=== PATIENT | female | born 1985 | race Two or more races ===

== ENCOUNTER 2023-06-21 23:17 | Emergency (ER) | payer MEDICAID, OTHER ==
[~2023-06-21] VITALS: Ht 157.5 cm; Wt 61.3 kg
[2023-06-22] MEDS ORDERED: ONDANSETRON HCL 4 MG/2 ML VIAL IM ONE (01:00)
[2023-06-22] MEDS ORDERED: KETOROLAC TROMETH 30 MG/ML 1ML VIAL IM ONE (01:00)
[2023-06-22] MEDS ORDERED: PROM1SOL4 PO (02:05)
[2023-06-22] MEDS ORDERED: IBUP-1455 PO (02:05)
[2023-06-22] MEDS ORDERED: ZOFR4T PO (02:05)
[2023-06-22 02:54] LABS: COVID19 ANTIGEN SOFIA FIA NEGATIVE (NEGATIVE); Rapid Influenza A Negative (Negative); Rapid Influenza B Negative (Negative)
[2023-06-22 03:49] LABS: Basophils # (auto) 0 10 ^3/uL (0-0.2); Basophils % (auto) 0.5 % (0.0-2.0); Eosinophils # (auto) 0 10 ^3/uL (0-0.8); Eosinophils % (auto) 0.6 % (0.0-7.0); Hematocrit 39.5 % (36.0-46.0); Hemoglobin 13.2 g/dL (12.2-16.2); Lymphocytes # (auto) 1.1 10 ^3/uL (0.4-5.4); Lymphocytes % (auto) 32.4 % (10.0-50.0); Mean Corpuscular Hemoglobin 28.8 pg (28.0-32.0); Mean Corpuscular Hgb Conc. 33.4 g/dL (32.0-36.0); Mean Corpuscular Volume 86.5 fL (80.0-100.0); Monocytes # (auto) 0.5 10 ^3/uL (0-1.3); Monocytes % (auto) 14.7 % (0.0-12.0); Neutrophils # (auto) 1.7 10 ^3/uL (1.6-8.6); Neutrophils % (auto) 51.8 % (37.0-80.0); Nucleated Red Blood Cells % 0.2 %; Red Blood Cells 4.57 10^6/uL (4.0-5.20); Red Cell Distribution Width 13.9 % (11.8-14.3); White Blood Cell 3.3 10^3/uL (4.4-10.8)
[2023-06-22 03:58] LABS: Albumin 4.4 g/dL (3.2-4.8); Alkaline Phosphatase 56 U/L (46-116); Anion Gap 5 (5-15); Aspartate Aminotransferase 11 U/L (13-40); BUN/Creatinine Ratio 5.6 (10.0-20.0); Bilirubin, Total 0.4 mg/dL (0.2-1.0); Blood Urea Nitrogen 5 mg/dL (9-23); Calcium 8.9 mg/dL (8.7-10.4); Carbon Dioxide 23 mmol/L (20-30); Chloride 107 mmol/L (98-107); Glucose 97 mg/dL (74-106); Potassium 3.9 mmol/L (3.5-5.1); Sodium 135 mmol/L (136-145)
[2023-06-22 03:59] LABS: Total Protein 6.9 g/dL (5.7-8.2)
[2023-06-22 04:01] LABS: Alanine Aminotransferase < 9 U/L (7-40)
[2023-06-22 04:20] VITALS: BP 99/67; PULSE 60; RESP 18; TEMP 99; O2SAT 95
== END 2023-06-22 04:22 | disposition home or self-care (01) ==
LOC: ER 23:17
DX: B34.9 Viral infection, unspecified (principal); Z20.822 Contact with and (suspected) exposure to COVID-19
CPT/HCPCS: 36415; 80053; 85025; 87426; 87804; 96372; 99284; J1885; J2405

== ENCOUNTER 2023-12-02 03:58 | Emergency (ER) | payer MEDICAID ==
[~2023-12-02] VITALS: Ht 157.5 cm; Wt 61.3 kg
[~2023-12-02 03:58] MED LIST: IBUP-1455 PO; PROM1SOL4 PO; ZOFR4T PO
[2023-12-02 04:10] VITALS: O2SAT 98
[2023-12-02 04:25] LABS: Urine Bacteria None Seen /hpf (None Seen)
[2023-12-02 04:37] LABS: Urine Blood Negative /uL (Negative); Urine Clarity Clear (Clear); Urine Color Light-Yellow (Yellow); Urine Mucus FEW (None Seen); Urine Protein, UAD Negative (Negative); Urine Specific Gravity 1.019 (1.001-1.035); Urine Urobilinogen 2 mg/dL (Negative); Urine WBC 2 /hpf (0 - 5)
[2023-12-02 04:39] LABS: Basophils # (auto) 0.1 10 ^3/uL (0-0.2); Basophils % (auto) 0.9 % (0.0-2.0); Eosinophils # (auto) 0.1 10 ^3/uL (0-0.8); Eosinophils % (auto) 1.3 % (0.0-7.0); Hematocrit 35.4 % (36.0-46.0); Hemoglobin 11.8 g/dL (12.2-16.2); Lymphocytes # (auto) 3.7 10 ^3/uL (0.4-5.4); Lymphocytes % (auto) 51.7 % (10.0-50.0); Mean Corpuscular Hemoglobin 28.5 pg (28.0-32.0); Mean Corpuscular Hgb Conc. 33.2 g/dL (32.0-36.0); Mean Corpuscular Volume 85.8 fL (80.0-100.0); Monocytes # (auto) 0.4 10 ^3/uL (0-1.3); Neutrophils # (auto) 2.9 10 ^3/uL (1.6-8.6); Neutrophils % (auto) 40.1 % (37.0-80.0); Nucleated Red Blood Cells % 0.1 %; Red Blood Cells 4.12 10^6/uL (4.0-5.20); Red Cell Distribution Width 13.6 % (11.8-14.3); White Blood Cell 7.3 10^3/uL (4.4-10.8)
[2023-12-02 04:52] LABS: Chloride 109 mmol/L (98-107); Potassium 3.7 mmol/L (3.5-5.1); Sodium 137 mmol/L (136-145)
[2023-12-02 04:53] LABS: Anion Gap 5 (5-15); Carbon Dioxide 23 mmol/L (20-30)
[2023-12-02 04:54] LABS: Calcium 9.5 mg/dL (8.7-10.4)
[2023-12-02 04:59] LABS: BUN/Creatinine Ratio 7.6 (10.0-20.0); Blood Urea Nitrogen 6 mg/dL (9-23); Glucose 103 mg/dL (74-106)
[2023-12-02] MEDS: ACETAMINOPHEN 500 MG TAB PO ONE (09:46)
[2023-12-02] MEDS: SODIUM CHLORIDE 0.9% 1,000 ML IV ONE ×2 (09:47)
[2023-12-02 09:48] VITALS: BP 122/72; PULSE 72; RESP 20; TEMP 98.2
== END 2023-12-02 13:33 | disposition home or self-care (01) ==
LOC: ER 03:58
DX: O26.891 Other specified pregnancy related conditions, first trimester (principal); R10.2 Pelvic and perineal pain; Z3A.01 Less than 8 weeks gestation of pregnancy
CPT/HCPCS: 36415; 76801; 76817; 80048; 81001; 84702; 85025; 96360; 96361; 99284; J7030

== ENCOUNTER → 2024-05-16 | Outpatient (CLI) | payer MEDICAID ==
[2024-05-16 15:20] LABS: Hematocrit 30.1 % (36.0-46.0); Hemoglobin 10.2 g/dL (12.2-16.2); Mean Corpuscular Hemoglobin 29.1 pg (28.0-32.0); Mean Corpuscular Hgb Conc. 33.8 g/dL (32.0-36.0); Mean Corpuscular Volume 86.3 fL (80.0-100.0); Platelet Count (auto) 188 10^3/uL (140-450); Red Blood Cells 3.49 10^6/uL (4.0-5.20); Red Cell Distribution Width 14.1 % (11.8-14.3); White Blood Cell 10.1 10^3/uL (4.4-10.8)
[2024-05-16 15:24] LABS: Basophils % (manual) 0 (0.0-2.0); Blast Cells 0; Eosinophils % (manual) 0 (0-7); Metamyelocytes % 0; Myelocytes % 0; Promyelocytes % 0; Reactive Lymphocytes 0
[2024-05-16 15:25] LABS: Urine Bacteria FEW /hpf (None Seen); Urine Blood Negative /uL (Negative); Urine Clarity Clear (Clear); Urine Color Yellow (Yellow); Urine Mucus FEW (None Seen); Urine Protein, UAD TRACE (Negative); Urine Specific Gravity 1.023 (1.001-1.035); Urine Urobilinogen 2 mg/dL (Negative); Urine WBC 2 /hpf (0 - 5)
[2024-05-16 16:02] LABS: Protein, Urine 19.2 mg/dL (1-14)
[2024-05-16 16:05] LABS: Creatinine, Urine 192.44 mg/dL (30.0-125.0); Urine Protein/Creatinine Ratio 0.1
[2024-05-16 16:07] LABS: Alanine Aminotransferase 12 U/L (7-40); Alkaline Phosphatase 90 U/L (46-116); Anion Gap 7 (5-15); Aspartate Aminotransferase 16 U/L (13-40); Bilirubin, Total 0.4 mg/dL (0.2-1.0); Blood Urea Nitrogen 6 mg/dL (9-23); Calcium 9.1 mg/dL (8.7-10.4); Carbon Dioxide 24 mmol/L (20-31); Chloride 105 mmol/L (98-107); Glucose 73 mg/dL (74-106); Potassium 3.7 mmol/L (3.5-5.1); Sodium 136 mmol/L (136-145); Total Protein 6.6 g/dL (5.7-8.2); Uric Acid 4.2 mg/dL (3.1-7.8)
[2024-05-16 17:07] LABS: Band Neutrophils % (manual) 8; Lymphocytes % (manual) 22 (10.0-50.0); Monocytes % (manual) 7 (0-12)
[2024-05-16 17:08] LABS: Platelet Estimate Adequate
[2024-05-17 08:06] LABS: RPR Non Reactive (Non Reactive)
[2024-05-18 06:07] LABS: Chlamydia Trachomatis, NAA Negative (Negative); Neisseria gonorrhoeae, NAA Negative (Negative)
== END | disposition home or self-care (01) ==
LOC: LAB 14:58
PROVIDERS: ATTEND Obstetrics & Gynecology
DX: Z34.80 Encounter for supervision of other normal pregnancy, unspecified trimester (principal)
CPT/HCPCS: 36415; 80053; 81001; 82570; 82951; 83036; 84156; 84550; 85007; 85027; 86592; 86850; 86900; 86901

== ENCOUNTER 2024-06-23 05:10 | Observation (INO) | payer MEDICAID ==
[~2024-06-23] VITALS: Ht 157.5 cm; Wt 73.0 kg
[2024-06-23] MEDS: LACTATED RINGER'S 1,000 ML IV ONE ×2 (06:40→09:22)
--- NOTE | 2024-06-23 06:40 | DVH ---
BIOPHYSICAL PROFILE HISTORY: Decreased movement TECHNIQUE: Multiple transabdominal real-time grayscale sonographic images through the gravid uterus of the fetus with duplex Doppler color flow and M-mode spectral analysis FINDINGS: BIOPHYSICAL PROFILE: breathing score: 2 movement score: 2 tone score: 2 Quantitative KENDAL score: 2 (KENDAL: 15.3 Cm.) Total score: 8 The cervix is not visualized. Single live fetus in cephalic presentation. heart rate 139 beats per minute. Grade 2 fundal placenta without previa or abruption IMPRESSION: 1. Biophysical profile score: 8/8
[2024-06-23] MEDS: ONDANSETRON HCL 4 MG/2 ML VIAL IV ONE (06:48)
--- NOTE | 2024-06-23 07:53 | DVHDS2 ---
Physician Discharge Progress N Final Diagnosis: n,v,dehydration Operations or Procedures: Operations or Procedures nst,ivf Condition on Discharge: Good Disposition: Home Discharge Instructions: Diet: Regular Activity: No Restrictions, As Tolerated Medications: na Follow Up Care: Specialist: 1w Discharge Statement: "Patient was advised to return to the ER or call 911 if any headaches, dizziness, shortness of breath, chest pain, abdominal pain, bleeding, fevers, or worsening of medical condition. Patient was counseled about treatment plan, medications, possible side effects, patientverbalized understanding. All questions were answered to the best of my ability. This discharge took greater then 30 minutes in planning, reviewing documentation, counseling the patient, and discussing with other team members." JAMES JOHNSON DO Jun 23, 2024 07:53
[2024-06-23 09:43] LABS: Hemoglobin 8.5 g/dL (12.2-16.2); Red Blood Cells 3.16 10^6/uL (4.0-5.20); Red Cell Distribution Width 15.1 % (11.8-14.3)
[2024-06-23 09:45] LABS: Hematocrit 26.4 % (36.0-46.0); Mean Corpuscular Hemoglobin 26.9 pg (28.0-32.0); Mean Corpuscular Hgb Conc. 32.3 g/dL (32.0-36.0); Mean Corpuscular Volume 83.5 fL (80.0-100.0); Platelet Count (auto) 180 10^3/uL (140-450)
[2024-06-23 09:51] LABS: Alanine Aminotransferase 19 U/L (7-40); Albumin 3.3 g/dL (3.2-4.8); Alkaline Phosphatase 113 U/L (46-116); Amylase 79 U/L (30-118); Anion Gap 5 (5-15); Aspartate Aminotransferase 25 U/L (13-40); Calcium 8.7 mg/dL (8.7-10.4); Carbon Dioxide 25 mmol/L (20-31); Glucose 80 mg/dL (74-106); Potassium 3.9 mmol/L (3.5-5.1); Sodium 138 mmol/L (136-145)
[2024-06-23] MEDS: PROMETHAZINE HCL 6.25 MG/5 ML ORAL SYRUP PO ONE (10:07)
[2024-06-23 10:23] LABS: Basophils % (manual) 0 (0.0-2.0); Blast Cells 0; Metamyelocytes % 0; Myelocytes % 0; Promyelocytes % 0; Reactive Lymphocytes 0
[2024-06-23 10:25] LABS: BUN/Creatinine Ratio 8.6 (10.0-20.0); Bilirubin, Total 0.3 mg/dL (0.2-1.0); Blood Urea Nitrogen < 5 mg/dL (9-23); Chloride 108 mmol/L (98-107); Total Protein 5.5 g/dL (5.7-8.2)
[2024-06-23 10:52] LABS: Lipase 22 U/L (12-53)
[2024-06-23 10:59] LABS: Band Neutrophils % (manual) 2; Eosinophils % (manual) 2 (0-7); Lymphocytes % (manual) 39 (10.0-50.0); Monocytes % (manual) 3 (0-12); Platelet Estimate Adequate
== END 2024-06-23 12:17 | disposition home or self-care (01) ==
LOC: LDRP 05:10
PROVIDERS: ADMIT Obstetrics & Gynecology; ATTEND Obstetrics & Gynecology
DX: O99.283 Endocrine, nutritional and metabolic diseases complicating pregnancy, third trimester (principal); E86.0 Dehydration; O21.8 Other vomiting complicating pregnancy; O36.8130 Decreased fetal movements, third trimester, not applicable or unspecified; O26.893 Other specified pregnancy related conditions, third trimester; R19.7 Diarrhea, unspecified; R42 Dizziness and giddiness; Z3A.34 34 weeks gestation of pregnancy; Z88.6 Allergy status to analgesic agent; Z88.5 Allergy status to narcotic agent
CPT/HCPCS: 36415; 59025; 76818; 80053; 81002; 82150; 83690; 85007; 85027; 94760; 96361; 96374; G0378; J2405; 96360